=== PATIENT | male | born 1930 | race Caucasian/White ===

== ENCOUNTER 2019-01-21 13:25 | Emergency (ER) | payer MEDICARE, OTHER ==
[2019-01-21 14:20] LABS: ANION GAP 12.8 mmol/L (5-15)
--- NOTE | 2019-01-21 14:28 | EDM.PDOC ---
ED HPI GENERAL MEDICAL PROBLEM - General Chief Complaint: General Stated Complaint: HIGH BLOOD SUGAR Time Seen by Provider: 01/21/19 14:03 Source of Information: Reports: Patient History Limitations: Reports: No Limitations - History of Present Illness INITIAL COMMENTS - FREE TEXT/NARRATIVE: Patient is an 88-year-old gentleman who presents to the emergency department this afternoon with a complaint of elevated glucose. Patient states that he did Accu-Chek earlier today and the meter read above 600. Patient became concerned so decided to present to the emergency department. Patient is currently on vacation and admits to change in diet. This includes large amount of sweets. Patient denies chest pain, shortness of breath, nausea, vomiting, diarrhea, abdominal pain, diaphoresis, headache, weakness, Onset: Today Duration: Hour(s): Improves with: Reports: None Worsens with: Reports: None Associated Symptoms: Reports: No Other Symptoms Treatments CHILDREN'S COUNSELOR: Reports: Other Medication(s) Other Treatments CHILDREN'S COUNSELOR: insulin - Related Data Allergies Allergy/AdvReac Type Severity Reaction Status Date / Time levofloxacin [From Levaquin] Allergy Other Verified 01/21/19 14:44 Sulfa (Sulfonamide Allergy Itching Verified 01/21/19 14:44 Antibiotics) Home Meds: Home Meds Aspirin [Adult Low Dose Aspirin EC] 81 mg PO DAILY 01/21/19 [History] Furosemide [Lasix] 80 mg PO BID 01/21/19 [History] Gabapentin [Neurontin] 1,200 mg PO DAILY@1400 01/21/19 [History] Gabapentin [Neurontin] 1,500 mg PO BEDTIME 01/21/19 [History] Nitroglycerin [Nitrostat] 0.4 mg SL ASDIRECTED 01/21/19 [History] Pantoprazole [ProTONIX] 40 mg PO DAILY 01/21/19 [History] Ranexa 500 mg PO DAILY 01/21/19 [History] Ubidecarenone [Co Q10] 200 mg PO DAILY 01/21/19 [History] traMADol [Ultram] 50 - 100 mg PO BEDTIME 01/21/19 [History] traZODone HCl [Trazodone HCl] 50 mg PO BEDTIME PRN 01/21/19 [History] Social & Family History - Tobacco Use Smoking Status *Q: Former Smoker Used Tobacco, but Quit: Yes Month/Year Tobacco Last Used: quit 1969 - Caffeine Use Caffeine Use: Reports: Coffee, Tea - Alcohol Use Days Per Week of Alcohol Use: 3 Number of Drinks Per Day: 1 Total Drinks Per Week: 3 - Recreational Drug Use Recreational Drug Use: No ED ROS GENERAL - Review of Systems Review Of Systems: ROS reveals no pertinent complaints other than HPI. Constitutional: Reports: No Symptoms HEENT: Reports: No Symptoms Respiratory: Reports: No Symptoms Cardiovascular: Reports: No Symptoms Endocrine: Reports: High Glucose GI/Abdominal: Reports: No Symptoms : Reports: No Symptoms Musculoskeletal: Reports: No Symptoms Neurological: Reports: No Symptoms Psychiatric: Reports: No Symptoms Hematologic/Lymphatic: Reports: No Symptoms Immunologic: Reports: No Symptoms ED EXAM, GENERAL - Physical Exam Exam: See Below Exam Limited By: No Limitations General Appearance: Alert, WD/WN, No Apparent Distress Eye Exam: Bilateral Eye: Normal Inspection Nose: Normal Inspection, Normal Mucosa, No Blood Throat/Mouth: Normal Inspection, Normal Oropharynx, No Airway Compromise Head: Atraumatic, Normocephalic Neck: Normal Inspection Respiratory/Chest: No Respiratory Distress, Lungs Clear, Normal Breath Sounds, No Accessory Muscle Use, Chest Non-Tender Cardiovascular: Regular Rate, Rhythm, Systolic Murmur GI/Abdominal: Normal Bowel Sounds, Soft, Non-Tender, No Organomegaly, No Distention, No Abnormal Bruit, No Mass Back Exam: Normal Inspection. No: CVA Tenderness (L), CVA Tenderness (R) Extremities: Normal Inspection Neurological: Alert, Oriented, Normal Cognition Psychiatric: Normal Affect, Normal Mood Skin Exam: Warm, Dry, Intact, Normal Color, No Rash Lymphatic: No Adenopathy Course - Vital Signs Last Recorded V/S: Last Vital Signs Temp 98.1 F 01/21/19 13:39 Pulse 87 01/21/19 13:39 Resp 20 01/21/19 13:39 BP 147/70 H 01/21/19 13:39 Pulse Ox 96 01/21/19 13:39 - Orders/Labs/Meds Labs: Laboratory Tests 01/21/19 01/21/19 01/21/19 Range/Units 13:50 13:50 14:30 WBC 6.44 (5.00-10.00) 10^3/uL RBC 4.04 L (4.50-6.00) 10^6/uL Hgb 12.5 L (13.0-17.0) g/dL Hct 37.4 L (40.0-52.0) % MCV 92.6 H (82.0-92.0) fL MCH 30.9 (27.0-31.0) pg MCHC 33.4 (32.0-36.0) g/dL RDW 14.6 H (11.5-14.5) % Plt Count 214 (150-400) 10^3/uL MPV 9.3 (7.4-10.4) fL Immature Gran % (Auto) 0.2 (0.0-5.0) % Neut % (Auto) 67.2 (50.0-70.0) % Lymph % (Auto) 18.0 L (20.0-40.0) % Geary % (Auto) 9.5 H (2.0-8.0) % Eos % (Auto) 4.2 H (1.0-3.0) % Baso % (Auto) 0.9 (0.0-1.0) % Immature Gran # (Auto) 0.01 (0.00-0.50) 10^3/uL Neut # (Auto) 4.33 (2.50-7.00) 10^3/uL Lymph # (Auto) 1.16 (1.00-4.00) 10^3/uL Geary # (Auto) 0.61 (0.10-0.80) 10^3/uL Eos # (Auto) 0.27 (0.10-0.30) 10^3/uL Baso # (Auto) 0.06 (0.00-0.10) 10^3/uL Sodium 134 L (136-145) mmol/L Potassium 3.5 (3.3-5.3) mmol/L Chloride 94 L (98-115) mmol/L Carbon Dioxide 30.7 (21.0-32.0) mmol/L Anion Gap 12.8 (5-15) mmol/L BUN 52 H* (6-25) mg/dL Creatinine 2.44 H (0.51-1.17) mg/dL Est Cr Clr Drug Dosing 20.64 mL/min Estimated GFR (MDRD) 25 mL/min Glucose 402 H (75 - 99) mg/dL Calcium 8.8 (8.7-10.3) mg/dL Total Bilirubin 0.6 (0.2-1.0) mg/dL AST 30 (15-37) U/L ALT 28 (12-78) U/L Alkaline Phosphatase 98 (46-116) IU/L Total Protein 7.7 (6.4-8.2) g/dL Albumin 3.36 (3.00-4.80) g/dL Specimen Type Urinvoid Urine Color Yellow (YELLOW) Urine Appearance Clear (CLEAR) Urine pH 6.5 (5.0-9.0) Ur Specific [place] 1.015 (1.005-1.030) Urine Protein Negative (NEGATIVE) mg/dL Urine Glucose (UA) Negative (NEGATIVE) mg/dL Urine Ketones Negative (NEGATIVE) mg/dL Urine Occult Blood Negative (NEGATIVE) Urine Nitrite Negative (NEGATIVE) Urine Bilirubin Negative (NEGATIVE) Urine Urobilinogen 0.2 (0.2-1.0) E.U./dL Ur Leukocyte Esterase Negative (NEGATIVE) Urine RBC 0-5 (0-5) /HPF Urine WBC 0-5 (0-5) /HPF Ur Epithelial Cells Many H /LPF Amorphous Sediment Moderate H (0/HPF) /HPF Urine Bacteria Occasional (NONE TO FEW) /HPF - Re-Assessments/Exams Free Text/Narrative Re-Assessment/Exam: 01/21/19 14:56 Patient afebrile, vital signs stable, no nausea or discomfort noted. Hyperglycemia improving, based on renal function and patient's history of becoming hypoglycemic. No intervention at this time. Discussed with patient and family the need to monitor diet, drink plenty of fluids, and take medication as directed. Patient will follow-up with PCP when he returns home. Departure - Departure Time of Disposition: 14:57 Disposition: Home, Self-Care 01 Clinical Impression: Hyperglycemia, Renal insufficiency - Discharge Information Instructions: Chronic Kidney Disease, Adult, [id number], Hyperglycemia, Easy- to-Read Referrals: PCP,Not In Area [Primary Care Provider] - Forms: ED Department Discharge Additional Instructions: Follow-up with primary doctor when you return home. Return to emergency department sooner if symptoms continue or worsen. Drink plenty of fluids, monitor diet, and take medication as prescribed. - Assessment/Plan Assessment:: Hyperglycemia Plan: Follow-up with PCP
== END 2019-01-21 15:10 | disposition home or self-care (01) ==
LOC: KA.ED 13:25
DX: R73.9 Hyperglycemia, unspecified (principal); N28.9 Disorder of kidney and ureter, unspecified; Z88.1 Allergy status to other antibiotic agents; Z88.2 Allergy status to sulfonamides; Z79.82 Long term (current) use of aspirin; Z79.899 Other long term (current) drug therapy; Z87.891 Personal history of nicotine dependence
CPT/HCPCS: 36415; 80053; 81001; 85025; 99284